=== PATIENT | male | born 1970 | race Caucasian/White ===

== ENCOUNTER 2017-08-24 03:27 | Emergency (ER) | payer OTHER ==
[~2017-08-24] VITALS: Ht 162.6 cm; Wt 68.0 kg
[~2017-08-24 03:27] MED LIST: Z.0.NO CURRENT MEDS
[2017-08-24 03:40] VITALS: BP 161/81; PULSE 90; RESP 20; TEMP 98.1; O2SAT 96
--- NOTE | 2017-08-24 04:04 | PD ---
HPI Chief Complaint: Alcohol/Drug Intoxication Time Seen by Provider: 03:49 Travel History International Travel<30 days: No Contact w/Intl Traveler<30days: No Traveled to known affect area: No History of Present Illness HPI 47-year-old white male presents to emergency department by PD for evaluation of under a [place] act. The patient is intoxicated. They had responded to a private residency were the individual was initially invited to drink alcohol. When he became heavily intoxicated he was asked to leave but refused. The Research Study Assistant's Department was called. The patient appeared heavily intoxicated. During his interview, He states that he's been having pain in his chest ever since they apolinar fluid off his lung at [facility] last year. He was told that he has spots in his lung and they recommend removing part of his lung and they will need to do some additional evaluation. The patient continues to smoke and drink alcohol. Patient states that pain in his chest is only right side. Worse with taking a deep breath. He denies any nausea vomiting. PFSH Past Medical History Narrative Medical Coronary artery disease, GA, question lung cancer, COPD Cardiovascular Problems: Yes (pt states he has had a GA) Respiratory: Yes (pt states he has COPD and had a "tube in my back") Past Surgical History Narrative Surgical Thoracentesis Social History Alcohol Use: Yes (drinks "beers everyday" but also had vodka tonight (08/24/17)) Tobacco Use: Yes (1 PPD) Substance Use: Yes (denies at this time (08/24/17)) Allergies-Medications (Allergen,Severity, Reaction): Coded Allergies: codeine (Unverified Allergy, Mild, 03/18/17) Reported Meds & Prescriptions Reported Meds & Active Scripts Active Reported No Current Meds (Miscellaneous Medication) Misc Review of Systems ROS Limitations: Intoxication Physical Exam Narrative GENERAL: Well-developed well-nourished white male in no acute distress. He appears heavily intoxicated. His speech is slurred. He is ataxic. SKIN: Focused skin assessment warm/dry. HEAD: Atraumatic. Normocephalic. EYES: Pupils equal and round. No scleral icterus. No injection or drainage. ENT: No nasal bleeding or discharge. Mucous membranes pink and moist. NECK: Trachea midline. No JVD. CARDIOVASCULAR: Regular rate and rhythm. No murmur appreciated. RESPIRATORY: No accessory muscle use. Clear to auscultation. Breath sounds equal bilaterally. GASTROINTESTINAL: Abdomen soft, non-tender, nondistended. Hepatic and splenic margins not palpable. MUSCULOSKELETAL: No obvious deformities. No clubbing. No cyanosis. No edema. NEUROLOGICAL: Awake and alert. No obvious cranial nerve deficits. Motor grossly within normal limits. Slurred speech. PSYCHIATRIC: Appropriate mood and affect; insight and judgment normal. Data Data Last Documented VS Vital Signs Date Time Temp Pulse Resp B/P (MAP) Pulse Ox O2 Delivery O2 Flow Rate FiO2 08/24/17 03:40 98.1 90 20 161/81 (107) 96 Orders Orders Electrocardiogram (08/24/17 04:14) Chest, Single Ap (08/24/17 04:14) [facility] Medical Decision Making Medical Screen Exam Complete: Yes Emergency Medical Condition: Yes Medical Record Reviewed: Yes Interpretation(s) Chest x-ray: Negative for acute pleuritic process. No obvious rib fracture. Differential Diagnosis Differential diagnoses: Alcohol intoxication, substance abuse, electrolyte abnormality, malingering, chest pain Narrative Course Chest x-ray is negative. EKG is unremarkable for acute ST-T wave changes. The patient's chest x-ray and EKG are unremarkable. I don't believe that it additional laboratory testing are indicated. The patient is intoxicated. He will be allowed to sleep it off here in the ER will discharge in the morning. This is alcohol intoxication Diagnosis Primary Impression: Alcohol intoxication Qualified Codes: F10.920 - Alcohol use, unspecified with intoxication, uncomplicated Patient Instructions: General Instructions Additional Instructions: Rest. Increase fluids. Avoid alcohol. Avoid illegal substances. Follow-up with [facility] for detox. Do not operate a car or any heavy machinery under the influence of alcohol or drugs. Follow-up with a medical doctor this week. Return to the ER for emergencies Med/Other Pt SpecificInfo: No Meds Exist/No RX given Disposition: 01 DISCHARGE HOME Condition: Stable Carlo Silva Aug 24, 2017 04:04
--- NOTE | 2017-08-24 04:37 | RADRPT ---
EXAM DATE/TIME: 08/24/2017 04:19 [facility] COMPARISON: No previous studies available for comparison. INDICATIONS : Possible chest pain. MEDICAL HISTORY : None. SURGICAL HISTORY : None. ENCOUNTER: Initial ACUITY: 1 day PAIN SCORE: Non-responsive. LOCATION: Bilateral chest FINDINGS: A single view of the chest demonstrates the lungs to be symmetrically aerated without evidence of mas s, infiltrate or effusion. The cardiomediastinal contours are unremarkable. Osseous structures are intact. CONCLUSION: 1. No acute cardiopulmonary disease. Varun Wolfe MD on August 24, 2017 at 4:35 Board Certified Radiologist. This report was verified electronically.
[2017-08-24 07:03] VITALS: BP 116/71; PULSE 104; RESP 18; O2SAT 98
[2017-08-24 09:31] VITALS: BP 109/69; PULSE 79; RESP 18; O2SAT 97
--- NOTE | 2017-08-24 13:19 | EKG ---
Date Performed: 08/24/2017 Time Performed: 04:46:28 PTAGE: 47 years EKG: Sinus rhythm NORMAL ECG NO PREVIOUS TRACING DOCTOR: Alex Griffith Interpretating Date/Time 08/24/2017 13:19:16
== END 2017-08-24 11:23 | disposition home or self-care (01) ==
LOC: NEPD 03:27
DX: F10.129 Alcohol abuse with intoxication, unspecified (principal); F17.200 Nicotine dependence, unspecified, uncomplicated; I25.10 Atherosclerotic heart disease of native coronary artery without angina pectoris; I25.2 Old myocardial infarction; J44.9 Chronic obstructive pulmonary disease, unspecified; Z88.5 Allergy status to narcotic agent
CPT/HCPCS: 71045; 93005; 99284